=== PATIENT | male | born 1975 | race Caucasian/White ===

== ENCOUNTER 2016-10-22 05:33 | Emergency (ER) | payer OTHER | END 2016-10-22 07:47 | disposition home or self-care (01) | LOC: ER 05:33 | DX: T78.1XXA Other adverse food reactions, not elsewhere classified, initial encounter (principal); R21 Rash and other nonspecific skin eruption; L29.9 Pruritus, unspecified; L50.0 Allergic urticaria; F17.210 Nicotine dependence, cigarettes, uncomplicated; Z88.0 Allergy status to penicillin | CPT/HCPCS: 96372; 99282-25; J2930; J3360 ==